=== PATIENT | female | born 1960 | race Caucasian/White ===

== ENCOUNTER 2024-08-26 08:05 | Emergency (ER) | payer SELFPAY ==
--- NOTE | 2024-08-26 08:17 | XR_ITS ---
PROCEDURE INFORMATION: Exam: XR Right Hip Exam date and time: 08/26/2024 8:14 AM Age: 64 years old Clinical indication: Injury or trauma; Fall; Difficulty in walking; Blunt trauma (contusions or hematomas); Bilateral; Pelvic region TECHNIQUE: Imaging protocol: Radiologic exam of the right hip. Views: 2 or 3 views hip with pelvis when performed. COMPARISON: No relevant prior studies available. FINDINGS: Bones/joints: osseous structures of the pelvis without an acute process. rami are intact. Sacroiliac joints without separation/diastases/fracture. Iliac bones unremarkable/noncontributory. Degenerative changes within the visualized portions of the caudal aspect of the lumbar spine. Severe degenerative changes within the right hip and acetabulum including flattening of the articular surface of the femoral head and remodeling of the acetabulum and femoral head. Possibly congenital. Possibly sequelae of avascular necrosis. Soft tissues: See Bones/joints finding. IMPRESSION: Severe degenerative changes within the right hip and acetabulum including flattening of the articular surface of the femoral head and remodeling of the acetabulum and femoral head. Possibly congenital. Possibly sequelae of avascular necrosis. No prior studies are available.
--- NOTE | 2024-08-26 08:17 | XR_ITS ---
PROCEDURE INFORMATION: Exam: XR Right Knee Exam date and time: 08/26/2024 8:18 AM Age: 64 years old Clinical indication: Injury or trauma; Fall; Difficulty in walking; Blunt trauma; Knee; Right TECHNIQUE: Imaging protocol: Radiologic exam of the right knee. Views: 3 views. COMPARISON: CR Femur R 08/26/2024 8:17 AM FINDINGS: Bones/joints: Osseous structures of the knee normal. No fracture. No joint effusion. Soft tissues unremarkable. Soft tissues: See Bones/joints finding. IMPRESSION: Normal knee.
--- NOTE | 2024-08-26 08:17 | XR_ITS ---
PROCEDURE INFORMATION: Exam: XR Right Femur Exam date and time: 08/26/2024 8:17 AM Age: 64 years old Clinical indication: Injury or trauma; Fall; Difficulty in walking and limp; Blunt trauma; Thigh or upper leg; Right TECHNIQUE: Imaging protocol: Radiologic exam of the right femur. Views: 2 views. COMPARISON: CR XR HIP RT 2-3V W/PELVIS 08/26/2024 8:14 AM FINDINGS: Bones/joints: No visualized fracture. Remodeling of the femoral head and acetabulum as previously described on the dedicated views of the hips. Diaphysis of the femur unremarkable. The osseous structures about the knee are normal. No joint effusion. Soft tissues: Unremarkable. IMPRESSION: 1. No visualized fracture. 2. Remodeling of the femoral head and acetabulum as previously described on the dedicated views of the hips.
--- NOTE | 2024-08-26 08:46 | EXP.UTC ---
Discharge Plan Disposition Patient Disposition: Home, Self-Care Condition: Good Prescriptions Prescriptions: New ibuprofen 600 mg tablet 600 mg PO Q6HP PRN (Reason: Mild Pain) Qty: 30 0RF Referrals Follow up/Referrals: Yao Shaw DO [Staff Physician] - See instructions Provider,Referral, [Primary Care Provider] - See instructions Activity Restrictions/Add. Instructions Additional Instructions/Restrictions: Go home and rest. It would be best if you rested tomorrow too. No heavy lifting & No twisting for the next few days. Follow up with your regular doctor. Follow up with Dr. Shaw (orthopedics). I put in a referral but you need to call his office and schedule an appointment. GO TO THE ER FOR ANY WORSENING SYMPTOMS OR CONCERN, ESPECIALLY BOWEL OR BLADDER ISSUES, SADDLE AREA NUMBNESS, FEVER, ETC Clinical Impressions Clinical Impression: Fall, Right leg pain, Right hip pain Print Language Print Language: [place] Citizen Discharge ED Provider: Jl Moon [facility] General Stated complaint: AO 08/26 0130 r hip pain down to knee Time Seen by Provider: 08/26/24 08:46 History of Present Illness Provider Complaint: She states that while she was at work early this morning she almost tripped. When she did this she bumped into a bed with her right hip. She has had right hip and knee pain since then. Related Data Previous Rx's ?Medication ?Instructions ?Recorded ibuprofen 600 mg tablet 600 mg PO Q6HP PRN Mild Pain #30 08/26/24 tabs Allergies Allergy/AdvReac Type Severity Reaction Status Date / Time No Known Allergies Allergy Verified 08/26/24 08:50 [facility] Disclaimer: The information contained in this section may have been updated after the patient was seen, as this information can be updated by other users. Social History Smoking Status: Never smoker alcohol intake: never current occupational status: employed Travel in the last 8 weeks: None ROS Obtained: Yes All systems reviewed & no additional complaints except as documented Constitutional Constitutional: Denies chills and Denies fever(s) Eyes Eyes: Denies eye discharge ENT Ears, Nose, Mouth, and Throat: Denies dizziness, Denies otalgia and Denies sore throat Cardiovascular Cardiovascular: Denies chest pain Respiratory Respiratory: Denies shortness of breath, Denies chest congestion, Denies cough, Denies stridor and Denies wheezing Gastrointestinal Gastrointestingal: Denies nausea or vomiting Musculoskeletal Musculoskeletal: Reports as per HPI Integumentary/Breasts Skin/Breast: Denies rash Neurologic Neurologic: Denies dizziness and Denies paresthesias Allergic/Immunologic Allergic/Immunologic: Denies wheezing Physical Exam General General appearance: alert and in no apparent distress Head Head exam: atraumatic, normocephalic and normal inspection Eye Eye exam: Present normal appearance, PERRL and EOMI ENT ENT exam: Present normal exam, normal oropharynx, mucous membranes moist, TM's normal bilaterally and normal external ear exam Neck Neck exam: Present normal inspection, full ROM and trachea midline; Absent meningismus or lymphadenopathy Chest Chest inspection: Present normal inspection and symmetric chest wall rise; Absent tenderness Respiratory Respiratory exam: Present normal lung sounds bilaterally; Absent respiratory distress Cardiovascular Cardiovascular exam: Present regular rate and normal rhythm; Absent JVD Abdominal Exam Abdominal exam: Present soft and normal bowel sounds; Absent distention, tenderness or guarding Extremities Exam Extremities exam: Present normal inspection, full ROM and normal capillary refill; Absent calf tenderness Back Exam Back exam: Present normal inspection; Absent tenderness Neurological Exam Neurological exam: Present alert and oriented X3 Psychiatric Psychiatric exam: Present normal affect and normal mood Skin Skin exam: Present warm, dry, intact and normal color Lymphatic Lymphatic Findings: no adenopathy Medical Decision Making Medical Records Medical records reviewed: No I reviewed the patient's medical records. Screening: Per USPSTF and CDC recommendations, given the prevalence of disease in our region, it is our hospital?s policy to screen for HIV and viral Hepatitis for all patients aged 18 and over and those with ongoing risk factors. Michael Inquiry Pt receiving controlled substance: No Orders (Tests/Meds): ORDERS Category Date Time Status Knee XR right 3 views [XR knee RT 3V] Stat Exams 08/26/24 08:17 Taken XR femur RT 2V Stat Exams 08/26/24 08:17 Taken XR hip RT 2-3V w/pelvis Stat Exams 08/26/24 08:17 Taken
[2024-08-26 08:48] VITALS: BP 162/100; PULSE 71; RESP 18; TEMP 36.6; O2SAT 99; BMI 21.9
[2024-08-26 09:32] VITALS: BP 162/100; PULSE 71; RESP 18; TEMP 36.6
== END 2024-08-26 09:35 | disposition home or self-care (01) ==
PROVIDERS: Emergency Provider Nurse Practitioner Family
DX: M25.551 Pain in right hip (principal); M79.604 Pain in right leg; M25.561 Pain in right knee; W18.49XA Other slipping, tripping and stumbling without falling, initial encounter; Y93.89 Activity, other specified; Y92.003 Bedroom of unspecified non-institutional (private) residence as the place of occurrence of the external cause
CPT/HCPCS: 73502; 73552; 73562; 99212; G0381